=== PATIENT | male | born 1965 | race African-American/Black ===

== ENCOUNTER 2020-05-01 10:59 | Emergency (ER) | payer OTHER ==
[2020-05-01 22:19] LABS: SARS-CoV-2 PCR by NAA DETECTED (NotDetected)
== END 2020-05-01 11:51 | disposition home or self-care (01) ==
LOC: ERS 10:59
DX: U07.1 COVID-19 (principal); I11.0 Hypertensive heart disease with heart failure; I50.9 Heart failure, unspecified; E11.9 Type 2 diabetes mellitus without complications; Z79.899 Other long term (current) drug therapy
CPT/HCPCS: 87635; 99283; U0003; U0005

== ENCOUNTER 2020-05-02 21:05 | Emergency (ER) | payer OTHER ==
[2020-05-02] MEDS ORDERED: Acetaminophen 500 MG TAB ONE (21:38)
[2020-05-02 22:37] LABS: Anion Gap 16 mmol/L (10-20); BUN (Urea Nitrogen) 18 mg/dL (8.4-25.7); Calc. Creatinine Clearance 0 mL/min (70-130); Calcium 8.9 mg/dL (7.8-10.44); Carbon Dioxide 23 mmol/L (22-29); Chloride 100 mmol/L (98-107); Glucose 89 mg/dL (70-105); Potassium 4.7 mmol/L (3.5-5.1); Sodium 134 mmol/L (136-145)
== END 2020-05-02 22:54 | disposition home or self-care (01) ==
LOC: ERS 21:05
DX: U07.1 COVID-19 (principal); I11.0 Hypertensive heart disease with heart failure; I50.9 Heart failure, unspecified; E11.9 Type 2 diabetes mellitus without complications; Z79.899 Other long term (current) drug therapy
CPT/HCPCS: 36415; 36416; 80048; 99284

== ENCOUNTER 2020-05-05 12:43 | Emergency (ER) | payer OTHER ==
[2020-05-05] MEDS ORDERED: Acetaminophen 500 MG TAB ONE (12:52)
[2020-05-05] MEDS ORDERED: Aspirin Chewable 81 MG TAB ONE (13:39)
[2020-05-05] MEDS ORDERED: Iopamidol-370 76% 500 ML 1 ML ONE (14:09)
[2020-05-05 14:19] LABS: #Lymphocytes 1.1 thou/uL (1.20-3.40); #Monocytes 0.3 thou/uL (0.11-0.59); #Neutrophils 1.7 thou/uL (1.40-6.50); %Basophils 0.2 % (0.0-1.0); %Eosinophils 0.1 % (0.0-10.0); %Lymphocytes 35.6 % (21.0-51.0); %Monocytes 8.6 % (0.0-10.0); %Neutrophils 55.6 % (42.0-75.0); Hemoglobin 13.5 g/dL (14.0-18.0); Mean Corpuscular Hemoglobin 27.6 pg (27.0-31.0); Mean Corpuscular Volume 86.4 fL (78.0-98.0); Mean Platelet Volume 7.9 fL (7.4-10.4); Platelet Count 168 thou/uL (130-400); RBC Distribution Width 12.3 % (11.5-14.5); Red Blood Cell (RBC) Count 4.88 mill/uL (4.70-6.10); White Blood Cell (WBC) Count 3.1 thou/uL (4.8-10.8)
[2020-05-05 14:36] LABS: ALT (SGPT) 11 U/L (8-55); AST (SGOT) 16 U/L (5-34); Albumin 4.2 g/dL (3.5-5.0); Alkaline Phosphatase 63 U/L (40-110); Anion Gap 15 mmol/L (10-20); BUN (Urea Nitrogen) 20 mg/dL (8.4-25.7); Bilirubin, Total 0.4 mg/dL (0.2-1.2); Calc. Creatinine Clearance 0 mL/min (70-130); Calcium 8.8 mg/dL (7.8-10.44); Carbon Dioxide 25 mmol/L (22-29); Chloride 101 mmol/L (98-107); Globulin 3.1 g/dL (2.4-3.5); Glucose 217 mg/dL (70-105); Potassium 5.1 mmol/L (3.5-5.1); Protein, Total 7.3 g/dL (6.0-8.3); Sodium 136 mmol/L (136-145)
== END 2020-05-05 17:34 | disposition home or self-care (01) ==
LOC: ERS 12:43
DX: U07.1 COVID-19 (principal); J12.82 Pneumonia due to coronavirus disease 2019; E27.8 Other specified disorders of adrenal gland; R79.89 Other specified abnormal findings of blood chemistry; E11.9 Type 2 diabetes mellitus without complications; I11.0 Hypertensive heart disease with heart failure; I50.9 Heart failure, unspecified; Z79.84 Long term (current) use of oral hypoglycemic drugs; Z79.899 Other long term (current) drug therapy
CPT/HCPCS: 36415; 71045; 71275; 80053; 83605; 83880; 84484; 85025; 85379; 93005; Q9967

== ENCOUNTER 2021-10-23 04:44 | Emergency (ER) | payer OTHER ==
[2021-10-23] MEDS ORDERED: Oxymetazoline HCl 0.05% (30 ML BOT) ONE (05:37)
== END 2021-10-23 05:45 | disposition home or self-care (01) ==
LOC: ERS 04:44
DX: U07.1 COVID-19 (principal); E11.9 Type 2 diabetes mellitus without complications; I11.0 Hypertensive heart disease with heart failure; I50.9 Heart failure, unspecified; Z79.84 Long term (current) use of oral hypoglycemic drugs; Z79.899 Other long term (current) drug therapy
CPT/HCPCS: 99283; U0003; U0005